=== PATIENT | male | born 1980 | race Caucasian/White ===

== ENCOUNTER 2022-10-10 08:20 | Inpatient (IN) ==
--- NOTE | 2022-09-24 09:36 | PAT Medication Instructions ---
Medication Instructions Date of Service September 24, 2022 Home Medications cetirizine 10 mg tablet (Zyrtec) 10 mg PO QAM PRN Allergy Symptoms fluticasone propionate 50 mcg/actuation nasal spray,suspension 2 spray intranasal QAM multivitamin 1 tab PO QAM omega-3 fatty acids 1,250 mg PO QAM STOP taking 2 weeks before surgery (or as soon as possible if surgery is within 2 weeks) omega-3 fatty acids 1,250 mg PO QAM DO NOT take the morning of surgery cetirizine 10 mg tablet (Zyrtec) 10 mg PO QAM PRN Allergy Symptoms multivitamin 1 tab PO QAM Take morning of surgery With a small sip of water, OTHERWISE NOTHING TO EAT OR DRINK AFTER MIDNIGHT: fluticasone propionate 50 mcg/actuation nasal spray,suspension 2 spray intranasal QAM Other Notes If you have any questions please call us at [phone] or [phone] or [phone] or [phone]
--- NOTE | 2022-09-28 08:24 | Anesthesiology Consultation ---
Date of Service September 28, 2022 Assessment & Plan (1) Encounter for pre-operative examination: - COVID screening: Per assessment on 09/28: No known COVID-19 positive contacts or current COVID-19 related symptoms. Travel screen negative. Patient vaccinated. At surgeon discretion if preop Covid testing being done. - Hyperkalemia: Potassium elevated at 5.3 on preop labs. Note needs to be written- Awaiting response from PCP (Dr. Surinder Abreu, [facility]). Chart Review Chart Review: Patient seen in Pre Admission Testing Teaching & Discussion Pre-Anesthesia Teaching/Discussion Notes: Instructed NPO after midnight before surgery,except medications with 15 cc of water. Medication instructions provide d according to the PAT guidelines. History Surgery Operation Date: 10/10/22 12:25 Proposed Procedures p L5-S1 Decompression and Fusion, Spinal Cord Monitoring - Ghanshyam Brandt, Height/Weight Height: 5 ft 9 in Weight: 87.5 kg Allergies Allergy/AdvReac Type Severity Reaction Status Date / Time acetaminophen [From Percocet] AdvReac Nausea Verified 09/28/22 08:29 oxycodone [From Percocet] AdvReac Nausea Verified 09/28/22 08:29 Medications Home Medications Medication Instructions Recorded Confirmed Last Taken cetirizine 10 mg tablet (Zyrtec) 10 mg PO QAM PRN Allergy Symptoms 09/20/22 09/20/22 Unknown fluticasone propionate 50 2 spray intranasal QAM 09/20/22 09/20/22 Unknown mcg/actuation nasal spray,suspension multivitamin 1 tab PO QAM 09/20/22 09/20/22 Unknown omega-3 fatty acids 1,250 mg PO QAM 09/20/22 09/20/22 Unknown Past Medical History Medical History Environmental and seasonal allergies History of COVID-19 06/2020- fever, loss of taste and smell > resolved Exercise / Class Metabolic Activity II 4-5 Yardwork/Stairs/Walk up hill Past Family History Family History Other No family history of adverse response to anesthesia Past Surgical History Surgical History H/O vasectomy History of repair of ACL right History of torn meniscus of left knee w/ repair [place] teeth extracted Past Anesthesia History No Hx of Anesthesia Complications and No Family Hx of Anesthesia Complications History of PONV No Hx of PONV and No Hx of Motion Sickness Social History Smoking Status: Never smoker Do You Dip or Chew Tobacco: No Hx Alcohol Use: Yes Alcohol type: beer, wine and hard liquor alcohol intake frequency: 0-2 drinks per day (1-2 drinks/day) Hx Substance Use: No substance use type: does not use Review of Systems Patient denies chest pain, shortness of breath, dyspnea on exertion, fever, chills, cough, wheezing, palpitations. Physical Exam Vital Signs VITALS BP 107/70 P 66 TEMP 97.8 SP02 100%RA RESP 16 PHYSICAL Full cervical extension range of motion. Full TMJ range of motion. TMD 3 finger breaths Mallampati Score 2 Dentition: intact Lungs: clear throughout to auscultation Cardiac: regular rate and rhythm, no murmurs noted Spine: normal Extremities: no edema Lab Results Anesthesia Preop Results Results Anesthesia Widget: WBC 5.19 K/ul (4.8-10.8) 09/28/22 Hgb 16.1 g/dl (14.0-18.0) 09/28/22 Hct 47.2 % (42.0-52.0) 09/28/22 Plt 303 K/uL (130-400) 09/28/22 Na 139 mmol/L (136-145) 09/28/22 K 5.3 mmol/L (3.5-5.1) H 09/28/22 Cl 102 mmol/L (98-107) 09/28/22 CO2 33 mmol/L (21-32) H 09/28/22 BUN 17 mg/dl (6-23) 09/28/22 Creat 0.93 mg/dl (0.6-1.4) 09/28/22 Glucose Level 94 mg/dl (70-99(Fasting)) 09/28/22 PT 11.4 Seconds (9.0-12.0) 09/28/22 PTT 29.4 Seconds (21.0-31.0) 09/28/22 INR 1.1 (0.9-1.1) 09/28/22 Urine Color Yellow 09/28/22 Urine Appearance Clear (Clear) 09/28/22 Urine pH 7.5 (4.5-7.5) 09/28/22 Urine Specific [place] 1.006 (1.000-1.030) 09/28/22 Urine Protein Negative (Negative) 09/28/22 Urine Glucose (UA) Negative (Negative) 09/28/22 Urine Ketones Negative (Negative) 09/28/22 Urine Blood Negative (Negative) 09/28/22 Urine Nitrite Negative (Negative) 09/28/22 Urine Bilirubin Negative (Negative) 09/28/22 Urine Urobilinogen Negative (Negative) 09/28/22 Urine Leukocyte Esterase Negative (Negative) 09/28/22 Blood Type O Positive 09/28/22 Antibody Screen NEGATIVE 09/28/22 Testing Electrocardiogram Date: 09/28/22 SB at 59bpm. Otherwise normal ECG. Chest X-Ray Date: 09/28/22 Findings: + NAD COVID-19 Risk Screen Screening Information COVID-19 Screen Date: 09/28/22 Exposure 21 Days Family/Household +COVID Last 21 Days: No Exposure 10 Days Any COVID Exposure Last 10 Days: No Symptoms Last 10 Days Experienced COVID Sx Last 10 Days: No + COVID 0-90 Days COVID + in Last 0-90 Days: No
[~2022-10-10 08:20] MED LIST: ACETAMINOPHEN 500 MG TAB PO SCH; CeleBREX 200 MG CAP PO SCH; GABAPENTIN 900 MG DOSE PO SCH; LR 15ML/HR IV SCH; ceFAZolin 2000MG 2,000 MG/15 ML SYR IV SCH
[2022-10-10] MEDS ORDERED: ROCURONIUM BROMIDE 10 MG/ML 5 ML VIAL IV ONE (08:50)
[2022-10-10] MEDS ORDERED: MIDAZOLAM HCL 1 MG/ML 2ML VIAL ONE (08:50)
[2022-10-10] MEDS ORDERED: PROPOFOL IV EMULSION 10 MG/ML 20 ML VIAL IV ONE (08:50)
[2022-10-10] MEDS ORDERED: fentaNYL citrate 100 MCG/2 ML VIAL ONE (08:50)
[2022-10-10] MEDS ORDERED: LIDOCAINE 2% MPF LOCAL 5 ML VIAL INFIL ONE (08:50)
[2022-10-10] MEDS ORDERED: PROMETHAZINE HCL 12.5 MG in SODIUM CHLORIDE 0.9% 50 ML IV PRN ×2 (09:15→13:56)
[2022-10-10] MEDS ORDERED: ONDANSETRON INJ 2 MG/ML 2 ML VIAL IV PRN ×2 (09:15→13:56)
[2022-10-10] MEDS ORDERED: ATROPINE SULFATE 0.1 MG/ML 10ML SYR IV PRN (09:15)
--- NOTE | 2022-10-10 09:34 | History & Physical Bridge Note ---
Date of Service October 10, 2022 History & Physical Bridge Note I have examined the patient, reviewed the History & Physical and in the interval since the performance of the History & Physical I have noted the following changes of clinical significance: no changes noted
--- NOTE | 2022-10-10 09:35 | History & Physical Report ---
Date of Service October 10, 2022 Assessment & Plan (1) Neurogenic claudication due to lumbar spinal stenosis: Plan: Decompression and fusion L5-S1 History of Present Illness Chief Complaint: Back and leg pain Primary Care Provider: Surinder Abreu This is a 42-year-old male presents with chronic persistent back and leg pain after failing course of nonoperative care is here for surgical invention. Allergies Allergy/AdvReac Type Severity Reaction Status Date / Time oxycodone [From Percocet] AdvReac Nausea Verified 10/10/22 08:49 Home Medications Medication Instructions Recorded Confirmed Type cetirizine 10 mg tablet (Zyrtec) 10 mg PO QAM PRN Allergy Symptoms 09/20/22 10/10/22 History fluticasone propionate 50 2 spray intranasal QAM 09/20/22 10/10/22 History mcg/actuation nasal spray,suspension omega-3 fatty acids 1,250 mg PO QAM 09/20/22 10/10/22 History Past Med/Surg History Medical History Environmental and seasonal allergies History of COVID-19 06/2020- fever, loss of taste and smell > resolved Surgical History H/O vasectomy History of repair of ACL right History of torn meniscus of left knee w/ repair [place] teeth extracted Family History Other No family history of adverse response to anesthesia Social History Smoking Status: Never smoker Second Hand Exposure: No; Do You Dip or Chew Tobacco: No; Tobacco Cessation Education Requested by Patient: No Hx Alcohol Use: Yes Alcohol type: beer, wine and hard liquor Hx Substance Use: No Preferred Language: Syriac Communication Ability: Effective Printing Plate Clerk Required: No Beliefs That Will Affect Care: None Current Living Situation: Spouse Other Information That Helps Us Care for You: No Feels Safe at Home: Yes Safety Concerns: Feels Safe At This Time Assistive Devices: None Physical Exam Physical Exam: Patient is alert and oriented Heart regular rhythm Lungs clear Results & Data Results & Data ([facility]) Vital Signs (Past 12 Hours) Vital Signs Temp Pulse Resp BP Pulse Ox O2 Del Method 10/10/22 08:53 36.6 C 77 18 123/78 99 Room Air
[2022-10-10] MEDS ORDERED: ceFAZolin 330 MG/ML 1 GM VIAL ONE (09:38)
[2022-10-10] MEDS ORDERED: BUPIVACAINE/EPINEPHRINE 0.25% 1:200,000 30 ML VIAL ONE (09:39)
[2022-10-10] MEDS ORDERED: DEXAMETHASONE SOD INJ 4 MG/ML VIAL ONE (10:27)
[2022-10-10] MEDS ORDERED: ONDANSETRON INJ 2 MG/ML 2 ML VIAL ONE (10:27)
[2022-10-10] MEDS ORDERED: FLOSEAL HEMOSTATIC MATRIX 10ML TOP ONE (10:47)
[2022-10-10] MEDS ORDERED: SUGAMMADEX SODIUM 200 MG/2 ML VIAL IV ONE (10:47)
[2022-10-10] MEDS ORDERED: HYDROmorphone INJ 2 MG/ML SYR/VIAL ONE (10:51)
--- NOTE | 2022-10-10 11:24 | Operative Report ---
Post Operative Report Pre & Post Diagnosis Operation Date: 10/10/22 10:05 Pre-Op Diagnosis: Lumbar spinal stenosis with neurogenic claudication Post-Op Diagnosis: Same I identified the patient and participated in the time-out.: Yes Procedure Operation Date: 10/10/22 10:05 Actual Procedures #1 lumbar decompression bilaterally facetectomies and foraminotomies L5-S1. #2 posterior spinal fusion L5-S1. #3 placement posterior instrumentation L5-S1. #4 interbody fusion L5-S1. #5 placement of Spira 11 x 26 mm at L5-S1. #6 placement locally harvested morselized autograft in the posterior gutters. #7 placement of I factor combined with V toss in the interbody space and posterior lateral gutters. Surgeon Ghanshyam Brandt, Ice House Supervisor Vivi Blanc Estimated Blood Loss 50 Findings Consistent with Post-Op Diagnosis Specimens None Indications This is a 42-year-old male who presents above-mentioned diagnosis after failed extensive course of nonoperative care is here for surgical intervention. Description of Procedure Patient was met with identified informed consent obtained. Patient was then taken to the operative suite underwent a patient placed in a prone position on the Brian table atop the Nathanael frame. All bony promises well-padded eyes inspected to ensure no external pressure placed upon them. This point the lumbar spine was prepped and draped in normal sterile fashion. Sharp dissection with the assistance of Bovie cautery performed down to and exposing the lamina transverse processes of L5 and the sacral ala bilaterally. From caudal cephalad fashion complete laminectomy of L5 was performed including bilateral medial facetectomies and foraminotomies addressing severe spinal stenosis. Pedicle screws were then placed in L5 and S1 levels bilaterally with assistance of fluoroscopy and appropriately sized felix placed. By way the transforaminal approach and right complete discectomy of L5-S1 was performed endplates corrected to subcortical bleeding bone and a 11 x 26 mm spiral cage with I factor tapped in position. The rods were then locked in final position bilaterally. The transverse processes of L5 and the sacral ala burred to subcortically bone. I factor combined with the test and locally harvested morselized autograft was placed in the posterior gutters. 15 round ZURDO drain inserted. The incision was then closed with 1 Vicryl the fascia 2-0 Vicryl subcutaneously and 4 Monocryl for final skin closure. Steri-Strips dressings placed. Patient waken taken to PACU in stable condition. Please note spinal cord monitoring was utilized at the procedure no changes noted. Lastly Vivi Blanc was present at the entire procedure and while the patient positioning complex portions of the surgery and final skin closure. I attest to the content of the Intraoperative Record and any orders documented therein. Any exceptions are noted below.
[2022-10-10] MEDS: HYDROmorphone INJ 1 MG/ML SYRINGE IV PRN ×4 (12:05→12:20)
--- NOTE | 2022-10-10 13:03 | Anesthesiology Progress Note ---
Date of Service October 10, 2022 Anesthesia Post Procedure Vital Signs Vital Signs: Temp Pulse Pulse Resp BP Pulse Ox O2 Del Method 10/10/22 12:45 53 L 12 108/58 L 100 Room Air 10/10/22 12:30 61 12 104/57 L 100 Nasal Cannula 10/10/22 12:15 36.6 C 73 18 105/65 99 Room Air 10/10/22 12:05 68 10 L 100/80 100 Oxymask 10/10/22 11:55 75 16 121/75 100 Oxymask 10/10/22 11:45 36.0 C L 72 11 L 117/69 100 Oxymask 10/10/22 08:53 36.6 C 77 18 123/78 99 Room Air O2 Flow Rate 10/10/22 12:45 4 10/10/22 12:30 2 10/10/22 12:15 10/10/22 12:05 3 10/10/22 11:55 3 10/10/22 11:45 5 10/10/22 08:53 Pain Intensity Back: Pain Intensity: 4 Transfer of Care Handoff Completed per policy Notes Mental Status: alert / awake / arousable Patient Amnestic to Procedure: Yes Nausea / Vomiting: adequately controlled Pain: adequately controlled Airway Patency, RR, SpO2: stable & adequate BP & HR: stable & adequate Hydration State: stable & adequate Anesthetic Complications: no major complications apparent
--- NOTE | 2022-10-10 13:36 | Fluoroscopy Report ---
INTRAOPERATIVE RADIOGRAPHS CLINICAL HISTORY: Lumbar spinal fusion. Fluoro time: 24 seconds. Exposure: 20.45 mGy FINDINGS: 2 spot fluoroscopic views of the lumbar spine are presented. There has been discectomy at L 5-S1 with laminectomy and posterior fusion at this level. Interpedicular screws are in place. The ort hopedic hardware appears intact. IMPRESSION: Intraoperative images from lumbar spinal fusion surgery as above. Electronically signed by: Cesar Busch M.D. 10/10/2022 1:34 PM
[2022-10-10] MEDS ORDERED: LORazepam 0.5 MG TAB PO PRN (13:56)
[2022-10-10] MEDS ORDERED: DO NOT ADMINISTER FLU VACCINE PRN (13:56)
[2022-10-10] MEDS ORDERED: MAGNESIUM HYDROXIDE SUSP 30 ML UDC PO PRN (13:56)
[2022-10-10] MEDS ORDERED: LORazepam 2 MG/1 ML VIAL IV PRN (13:56)
[2022-10-10] MEDS ORDERED: ONDANSETRON 4 MG OD TAB PO PRN (13:56)
[2022-10-10] MEDS ORDERED: METOCLOPRAMIDE HCL INJ 5 MG/ML 2 ML VIAL IV PRN (13:56)
[2022-10-10] MEDS ORDERED: ALUMINUM/MAGNESIUM SUSP 30 ML UDC PO PRN (13:56)
[2022-10-10] MEDS ORDERED: FAMOTIDINE 20 MG TAB PO PRN (13:56)
[2022-10-10] MEDS ORDERED: bisacodyL 10 MG SUPP PR PRN (13:56)
[2022-10-10] MEDS ORDERED: CETIRIZINE HCL 10 MG TABLET PO PRN (13:56)
[2022-10-10] MEDS ORDERED: HYDROmorphone INJ 0.5 MG/0.5 ML SYR IV PRN (13:56)
[2022-10-10] MEDS ORDERED: SOD PHOSPHATE/SOD BIPHOSPHATE ENEMA 132 ML BTL PR PRN (13:56)
[2022-10-10] MEDS ORDERED: HYDROCODONE/ACETAMOPHEN 5/325MG TAB PO PRN (13:56)
[2022-10-10] MEDS ORDERED: diphenhydrAMINE Capsule 25 MG CAP PO PRN (13:56)
[2022-10-10] MEDS ORDERED: NALOXONE HCL 0.4 MG/1 ML VIAL/CARP IV PRN (13:56)
[2022-10-10] MEDS ORDERED: DO NOT ADMINISTER PNEUMOCOCCAL VACCINE PRN (13:56)
[2022-10-10] MEDS ORDERED: HYDROmorphone INJ 1 MG/ML SYRINGE IV PRN (13:56)
[2022-10-10] MEDS ORDERED: hydrOXYzine HCl 25 MG TAB PO PRN (13:56)
[2022-10-10] MEDS ORDERED: ACETAMINOPHEN 1,000 MG/100 ML VIAL IV PRN (13:56)
[2022-10-10] MEDS: LACTATED RINGER'S 1,000 ML IV SCH ×2 (13:59→23:45)
[2022-10-10] MEDS: DOCUSATE SODIUM/SENNA 50/8.6MG TAB PO SCH (20:08)
[2022-10-10] MEDS: ACETAMINOPHEN 500 MG TAB PO PRN (21:32)
[2022-10-11 06:05] LABS: Basophils # (auto) 0.01 K/uL (0-0.2); Basophils % (auto) 0.1 %; Hematocrit (blood only) 37.9 % (42.0-52.0); Hemoglobin 13.4 g/dl (14.0-18.0); Immature Granulocytes # (auto) 0.06 K/uL (0.01-0.20); Immature Granulocytes % (auto) 0.4 %; Lymphocytes # (auto) 1.03 K/uL (1.2-3.4); Lymphocytes % (auto) 7.7 %; Mean Corpuscular Hgb Conc 35.4 g/dL (32.0-36.0); Mean Corpuscular Volume 84.8 fL (80.0-100.0); Mean Platelet Volume 10.2 fL (9.4-12.4); Monocytes # (auto) 1.15 K/uL (0.11-0.59); Monocytes % (auto) 8.5 %; Neutrophils # (auto) 11.21 K/uL (1.40-6.50); Neutrophils % (auto) 83.3 %; Platelet Count 276 K/uL (130-400); RDW Coefficient of Variation 11.5 % (11.5-14.5); RDW Standard Deviation 35.3 fL (36.4-46.3); Red Blood Count 4.47 M/uL (4.70-6.10); White Blood Count 13.46 K/ul (4.8-10.8)
[2022-10-11] MEDS: POLYETHYLENE (MIRALAX) 17 GM PACK PO SCH ×4 (06:05→23:52)
[2022-10-11 06:18] LABS: Creatinine Clr Calc Pharmacy 103.5 ml/min; Est GFR (African American) 116.9 ml/min; Est GFR (Non-African American) 100.9 ml/min; Potassium 4.3 mmol/L (3.5-5.1)
[2022-10-11] MEDS: ACETAMINOPHEN 500 MG TAB PO PRN ×2 (08:54→17:34)
[2022-10-11] MEDS: FLUTICASONE PROPIONATE NA SPR 16 GM BTL SCH (08:55)
[2022-10-11] MEDS: dexAMETHasone 6 MG in SYRINGE 0 ML IV SCH (08:55)
[2022-10-11] MEDS: traMADol HCL 50 MG TABLET PO PRN ×2 (12:42→20:47)
--- NOTE | 2022-10-11 13:14 | Orthopedic Progress Note ---
Date of Service October 11, 2022 Assessment & Plan (1) Neurogenic claudication due to lumbar spinal stenosis: Plan: This time continue physical therapy monitor his ZURDO operatively discharge home in the next day or so. Admission and Anticipated Discharge Date Admission Date: October 10, 2022 Subjective Back pain controlled leg pain improved. Physical Exam Physical Exam: Patient is up and ambulating halls. He is comfortable. Is good strength testing. Results & Data ([facility]) Vital Signs (Past 12 Hours) Vital Signs Temp Pulse Pulse Resp BP Pulse Ox O2 Del Method 10/11/22 09:14 36.5 C 83 18 123/74 99 Room Air 10/11/22 05:01 36.8 C 76 18 106/66 97 Room Air
[2022-10-11] MEDS: DOCUSATE SODIUM/SENNA 50/8.6MG TAB PO SCH (20:43)
[2022-10-12] MEDS: POLYETHYLENE (MIRALAX) 17 GM PACK PO SCH (05:38)
[2022-10-12] MEDS: dexAMETHasone 6 MG in SYRINGE 0 ML IV SCH (07:42)
[2022-10-12] MEDS: FLUTICASONE PROPIONATE NA SPR 16 GM BTL SCH (07:49)
[2022-10-12] MEDS: ACETAMINOPHEN 500 MG TAB PO PRN (07:49)
--- NOTE | 2022-10-12 09:44 | Discharge Summary ---
Date of Service October 12, 2022 Admission HPI Per Admitting Provider This is a 42-year-old male presents with chronic persistent back and leg pain after failing course of nonoperative care is here for surgical invention. Principal Diagnosis Lumbar spinal stenosis with neurogenic claudication Discharge Data Allergies Allergy/AdvReac Type Severity Reaction Status Date / Time oxycodone [From Percocet] AdvReac Nausea Verified 10/10/22 08:49 Procedures Performed Operation Date: 10/10/22 10:05 Actual Procedures p L5-S1 Decompression and Fusion, Spinal Cord Monitoring(Not Applicable) - Ghanshyam Brandt DO Ordered Studies 10/10/22 10:05 FL lumbar spine 2-3V Routine Hospital Course (1) Neurogenic claudication due to lumbar spinal stenosis: Patient with lumbar decompression fusion tolerated this well was taken to orthopedic for postoperative. Postoperative day 1 is up and ambulating progress postop day #2. ZURDO drain decreasing appropriately. Extra strength testing. Pain well controlled. Separately discharged home. Discharge orders and instructions found in chart for further review. Total Time Total Time Spent Total Time Spent (In Minutes): 20 minutes Discharge Plan Discharge Items Patient Disposition: Home - Self-Care Reason For Visit: Other Intervertebral Disc Degeneration Discharge Diagnosis: Degenerative disc disease with neurogenic claudication Activity: As commented below Non-emergency contact: Primary Care Provider Call non-emergency contact if: you have any medication questions Follow-up/Referrals: Surinder Abreu [Primary Care Provider] - Diet: Regular Addtl Attending Provider Instructions: ACTIVITY RECOMMENDATIONS: SELF CARE INSTRUCTIONS AFTER THORACIC/LUMBAR FUSIONS 1. You may walk to your tolerance. It is good exercise for your legs and back. Expect some back and intermittent leg aches and pains. 2. You may perform "counter-top" level activities (make a sandwich, mode with a project, etc.). 3. No bending or lifting of more than 10 pounds or back twisting of any nature (roll like a log when turning in bed). 4. You may ride in a car for 20-30 minutes at a time. No driving until after your first visit with your doctor. 5. Frequent changes of position and restricting sitting to 30 minutes at a time will help limit the amount of back spasms and stiffness you may experience. 6. You may discontinue the use of ambulatory aids (cane, crutches, etc.) once your strength and confidence allow. 7. You may business intelligence administrator the shower and let water strike your incision when you arrive home at least once daily. Do not take a tub bath, sit in a hot tub or go into a swimming pool until after your first recheck in the office. SPECIAL CARE INSTRUCTIONS: VERY IMPORTANT TO READ AND REVIEW A. Your surgical incision has been closed with a cosmetic suture under the skin that will dissolve in about 6 weeks. In 14 days, you can use a pair of clean scissors and cut the suture that is left outside of the skin at the ends of your incision. 1. The small skin tapes can be removed 7 days after surgery if they have not fallen off by that point. 2. You may keep the wound open to air as much as possible to promote healing after post-op day number 5 unless told otherwise by your doctor. 3. If you think the wound looks like it is becoming infected (redness or worsening drainage) and/or you are experiencing fever, chill or worsening back pain and muscle spasms, contact the office so that we may evaluate you as soon as possible. B. Complications are uncommon, but please contact us if you have any signs or symptoms of: 1. wound infection (fever higher than 102.5 degrees F, redness, separation of wound, drainage, or increasing pain from the incision) 2. blood clots in legs (pain, swelling, redness and warmth in legs) 3. urinary tract infection (fever higher than 102.5 degrees F, burning upon urination or increased frequency of urination) 4. nerve problems (inability to walk on your toes or heels, numbness, loss of bowel or bladder control) 5. any other symptoms that concern you C. Please call the office at if you have any concerns or questions about your operation or recovery. D. No smoking! Smoking drastically decreases the chance of a solid fusion. E. Do not take any anti-inflammatory medications (Indocin, Advil, Motrin, Aspirin, Naprosyn, etc.) as these may inhibit the chance of a solid fusion. Tylenol is okay to take for pain. MANAGING PAIN AFTER SPINAL SURGERY 1. Narcotic medication is intended for short-term use and will be provided for surgical pain. Surgical pain usually lasts for a period of 4-6 weeks. Narcotic medication includes Percocet, Vicodin, Darvocet, Tylenol #3 or Lortab. 2. Longer-term pain is more appropriately treated with non-narcotic medication such as Tylenol ES. 3. Muscle spasm is not appropriately treated with narcotics. Muscle relaxers such as Soma, Flexeril or Skelaxin can be used along with Tylenol ES. 4. Remember that we all live with some "aches and pains". This is not unusual or uncommon after an injury or as we get older. a. Back pain is expected and may include muscle spasms for 4 to 6 weeks after surgery. The pain should gradually improve. If the pain worsens for no apparent reason, please contact the office. b. Intermittent leg pain may also be experienced and should not be concerned about unless it worsens for no apparent reason. If so, please contact the office. 5. We will provide appropriate medication within the normal guidelines of their prescribed use. We will also be very cautious and aware of potential abuse and extended duration of patients' medication needs. a. Pain medications are for your comfort and to assist with sleep and rest so that the tissue can heal. They are not provided in order to return to normal activity and should not be used through the day. To do so or worsening pain at night can result from ongoing tissue damage and development of tolerance to the prescribed medicine. 6. Please allow 2-3 days to process refills. Prescriptions will not be mailed but must be picked up at the office. FOLLOW UP VISIT: Keep your scheduled follow-up appointment. Any questions, please call the office at . Pending Studies at Discharge: No Stand-Alone Forms: My [facility] [employer], Smoking Cessation Medications and DC Order Prescriptions: New hydrocodone-acetaminophen 5-325 mg tablet 1 tab PO Q6H PRN (Reason: pain) Qty: 30 0RF Rx Instructions: 1 tab PO PRN; tramadol 50 mg tablet 50 mg PO Q6H PRN (Reason: pain, moderate) Qty: 30 0RF Continued cetirizine [Zyrtec] 10 mg Tablet 10 mg PO QAM PRN (Reason: Allergy Symptoms) fluticasone propionate 50 mcg/actuation [place],Suspension 2 spray INTRANASAL QAM Rx Instructions: administer into each nostril omega-3 fatty acids Capsule 1,250 mg PO QAM Discharge Orders: Discharge Order (Routine); Ordered 10/12/22 Ordered By: Ghanshyam Brandt Admission Data Admit Date/Time: 10/10/22 11:26 Attending Provider: Ghanshyam Brandt Admit Provider: Ghanshyam Brandt Primary Care Provider: Surinder Abreu
[2022-10-12] MEDS: traMADol HCL 50 MG TABLET PO PRN (12:38)
== END 2022-10-12 12:59 | disposition home or self-care (01) | DRG 455 ==
LOC: ASU 08:20 → 3E 11:26